=== PATIENT | female | born 1965 | race Caucasian/White ===

== ENCOUNTER 2018-04-26 06:40 | Day surgery (SDC) | payer OTHER ==
[~2018-04-26 06:40] MED LIST: AMBIEN10 MG PO; CLONAZEPAM1 MG PO; CYMBALTA30 MG PO; LOSARTAN POTASS25 MG PO; METOPROLOL SUCC50 MG PO; ROPINIROLE HCL1 MG PO; SINGULAIR10 MG PO; VICTOZA; [UNRECOGNIZED DRUG - OTHER] IH; [UNRECOGNIZED DRUG - OTHER] IM; [UNRECOGNIZED DRUG - OTHER] PO; [UNRECOGNIZED DRUG - OTHER] PO
== END 2018-04-26 14:05 | disposition home or self-care (01) ==
LOC: CIR.AMB 06:40
DX: G56.02 Carpal tunnel syndrome, left upper limb (principal)

== ENCOUNTER 2020-01-02 05:45 | Day surgery (SDC) | payer OTHER ==
[~2020-01-02 05:45] MED LIST changes: +ALDACTONE PO; +INVOKAMET; +INVOKAMET 150-1 EACH PO; +LOMAIRA8 MG PO; +PRALUENT P150 MG/1 M PERCUT; +TOPAMAX25 MG PO; +XOPENEX
== END 2020-01-02 12:30 | disposition home or self-care (01) ==
LOC: CIR.AMB 05:45 → ADM 10:45 → CIR.AMB 12:30
DX: M65.312 Trigger thumb, left thumb (principal)